=== PATIENT | male | born 1995 | race Caucasian/White ===

== ENCOUNTER 2016-11-23 19:14 | Emergency (ER) | payer OTHER ==
[2016-11-23] MEDS ORDERED: NS 0.9% 1000 ML* 1,000 ML IV ONE (21:42)
[2016-11-23 22:14] LABS: Hematocrit 48 % (42-52); Mean Corpuscular HGB Conc 33 g/dl (31-36); Mean Corpuscular Hemoglobin 29 pg (27-31); Mean Corpuscular Volume 88 fL (80-94); Mean Platelet Volume 7 um3 (7.4-10.4); Red Blood Count 5.49 10^6/ul (4.0-5.4); Red Cell Distribution Width 14 % (10.5-15); White Blood Count 13.1 10^3/ul (3.5-10.8)
[2016-11-23 22:28] LABS: Albumin 4.6 g/dL (3.2-5.2); BUN/Creatinine Ratio 10.7 (8-20); Calcium 9.3 mg/dL (8.6-10.3); EGFR African American 116.1 (>60); EGFR Non-African American 90.3 (>60); Globulin 2.8 g/dL (2-4); Potassium 3.9 mmol/L (3.5-5.0); Total Bilirubin 0.4 mg/dL (0.2-1.0); Total Protein 7.4 g/dL (6.4-8.9)
[2016-11-23 22:42] LABS: Mono Internal Control QC Line Present
[2016-11-23 22:43] LABS: Manual Entry Verification ROB0080
--- NOTE | 2016-11-23 22:45 | RAD ---
INDICATION: Cough, LEFT-sided crackles. Assess for pneumonia. Hematemesis and hemoptysis. History of bronchitis. Asthma. COMPARISON: June 25, 2016 TECHNIQUE: Dual energy PA and routine lateral views of the chest were obtained. REPORT: Clear lungs and pleural spaces. Negative for pneumothorax. The heart, pulmonary vasculature, and mediastinal contours are unremarkable. Unremarkable osseous structures and soft tissue contours. IMPRESSION: No evidence for acute intrathoracic disease.
[2016-11-23 23:46] VITALS: BP 142/97
--- NOTE | 2016-12-02 10:17 | ED ---
GI/ HPI - HPI Summary HPI Summary: Pt here w/ concern about vomiting blood this morning. Drank alot of ETOH last night due to campus celebration of . When he woke this morning, vomited blood into the toilet once. He proceeded to drink ETOH again as the day went on. Denies ab pain and no bloody or dark tarry stool at this time although he reports a remote h/o BRB on toilet paper w/ wiping in the past, painless. His throat is sore today as well. He also notes a cough this morning prior to vomiting. Thinks he may be sick as he's had strep throat before. Denies fever, chills, diarrhea and currently does not have nausea. Has not vomited in many hours and has tolerated food and drink w/o difficulty since vomiting this morning. No known h/o ulcer, varices, liver issues, crohn's/UC or Bethany Licea tears. Smokes cigarettes and marijuana. - History of Current Complaint Chief Complaint: EDGeneral Time Seen by Provider: 11/23/16 21:26 Stated Complaint: UPPER RESPIRATORY COMPLAINT/BLOOD IN VOMIT Hx Obtained From: Patient, Family/[employer] - girlfriend - concerned Pain Intensity: 2 - Allergy/Home Medications Allergies/Adverse Reactions: Allergies Allergy/AdvReac Type Severity Reaction Status Date / Time No Known Allergies Allergy Verified 06/25/16 06:04 PMH/Surg Hx/FS Hx/Imm Hx Previously Healthy: Yes Endocrine/Hematology History: Denies: Hx Anticoagulant Therapy, Hx Blood Disorders, Hx Unexplained Bleeding Cardiovascular History: Denies: Hx Hypertension Respiratory History: Reports: Hx Asthma GI History: Denies: Hx Cirrhosis, Hx Crohn's Disease, Hx Diverticulosis, Hx Gall Bladder Disease, Hx Gastroesophageal Reflux Disease, Hx Gastrointestinal Bleed, Hx Hiatal Hernia, Hx Irritable Bowel, Hx Ulcer Infectious Disease History: No Infectious Disease History: Reports: Traveled Outside the [place] in Last 30 Days - [employer] - Family History Known Family History: Positive: Hypertension - Social History Alcohol Use: Occasionally Substance Use Type: Reports: Marijuana Smoking Status (MU): Current Some Day Smoker Review of Systems Negative: Fever, Chills Positive: Sore Throat. Negative: Dental Pain, Ear Ache, Nasal Discharge Negative: Chest Pain Positive: Cough - see HPI. Negative: Shortness Of Breath Positive: Vomiting - see HPI. Negative: Abdominal Pain, Diarrhea, Nausea Negative: hematuria Negative: Arthralgia, Myalgia Negative: Bruising Neurological: Negative Negative: Headache, Weakness, Paresthesia, Numbness, Syncope Psychological: Normal All Other Systems Reviewed And Are Negative: Yes Physical Exam Triage Information Reviewed: Yes Vital Signs On Initial Exam: Initial Vitals Temp Pulse Resp BP Pulse Ox 98 F 80 18 147/83 100 11/23/16 19:41 11/23/16 19:41 11/23/16 19:41 11/23/16 19:41 11/23/16 19:41 Vital Signs Reviewed: Yes Appearance: Positive: Well-Appearing, No Pain Distress, Well-Nourished Skin: Positive: Warm, Dry - no signs of echymosis, purpura Head/Face: Positive: Normal Head/Face Inspection Eyes: Positive: Normal, EOMI, Conjunctiva Clear - anicteric sclera ENT: Positive: Hearing grossly normal, Pharynx normal - mucosa moist - no sores , lesions or bleeding observed Neck: Positive: Supple, Nontender Respiratory/Lung Sounds: Positive: Clear to Auscultation, Breath Sounds Present. Negative: Rales, Rhonchi, Stridor, Wheezes Cardiovascular: Positive: Normal, RRR, Pulses are Symmetrical in both Upper and Lower Extremities, S1, S2 Abdomen Description: Positive: Nontender, No Organomegaly, Soft, Other: - AURORA (- ) sesar blood; internal hemorrhoid palpated - NTTP Bowel Sounds: Positive: Present Musculoskeletal: Positive: Normal, Strength/ROM Intact Neurological: Positive: Normal, Sensory/Motor Intact, Alert, Oriented to Person Place, Time, CN Intact II-III Psychiatric: Positive: Normal - [place] Coma Scale Coma Scale Total: 15 Diagnostics - Vital Signs Vital Signs Temp Pulse Resp BP Pulse Ox 11/23/16 23:15 98.2 F 11/23/16 23:00 76 142/97 98 11/23/16 22:30 76 138/97 98 11/23/16 22:01 82 141/99 100 11/23/16 21:16 83 99 11/23/16 21:14 152/99 11/23/16 21:09 98.8 F 86 16 152/99 98 11/23/16 19:41 98 F 80 18 147/83 100 - Laboratory Lab Results: Lab Results 0511/23/16 11/23/16 Range/Units 22:05 22:05 22:17 WBC 13.1 H (3.5-10.8) 10^3/ul RBC 5.49 H (4.0-5.4) 10^6/ul Hgb 16.0 (14.0-18.0) g/dl Hct 48 (42-52) % MCV 88 (80-94) fL MCH 29 (27-31) pg MCHC 33 (31-36) g/dl RDW 14 (10.5-15) % Plt Count 190 (150-450) 10^3/ul MPV 7 L (7.4-10.4) um3 Neut % (Auto) 68.8 (38-83) % Lymph % (Auto) 18.6 L (25-47) % [place] % (Auto) 10.3 H (1-9) % Eos % (Auto) 1.9 (0-6) % Baso % (Auto) 0.4 (0-2) % Absolute Neuts (auto) 9.0 H (1.5-7.7) 10^3/ul Absolute Lymphs (auto) 2.4 (1.0-4.8) 10^3/ul Absolute Monos (auto) 1.3 H (0-0.8) 10^3/ul Absolute Eos (auto) 0.2 (0-0.6) 10^3/ul Absolute Basos (auto) 0.1 (0-0.2) 10^3/ul Absolute Nucleated RBC 0.02 10^3/ul Nucleated RBC % 0.2 Sodium 135 (133-145) mmol/L Potassium 3.9 (3.5-5.0) mmol/L Chloride 101 (101-111) mmol/L Carbon Dioxide 26 (22-32) mmol/L Anion Gap 8 (2-11) mmol/L BUN 11 (6-24) mg/dL Creatinine 1.03 (0.67-1.17) mg/dL Est GFR ( Amer) 116.1 (>60) Est GFR (Non-Af Amer) 90.3 (>60) BUN/Creatinine Ratio 10.7 (8-20) Glucose 80 (70-100) mg/dL Calcium 9.3 (8.6-10.3) mg/dL Total Bilirubin 0.40 (0.2-1.0) mg/dL AST 23 (13-39) U/L ALT 34 (7-52) U/L Alkaline Phosphatase 62 (34-104) U/L Total Protein 7.4 (6.4-8.9) g/dL Albumin 4.6 (3.2-5.2) g/dL Globulin 2.8 (2-4) g/dL Albumin/Globulin Ratio 1.6 (1-3) Lipase 18 (11.0-82.0) U/L Monoscreen Negative (Negative) Group A Strep Rapid Negative (Negative) Result Diagrams: 11/23/16 22:05 11/23/16 22:05 Lab Statement: Any lab studies that have been ordered have been reviewed, and results considered in the medical decision making process. GIGU Course/Dx - Course Course Of Treatment: Pt presents w/ 1 x vomiting what appeared to be blood witin emesis into toilet this morning. Has been eating and drinking well since w /o pain. Suspect this was triggered by ETOH consumption. It is unclear if the contents of emesis were actually blood or bile/food. A CXR was ordered to asses for aspiration pneumonia w/ c/o cough which he does not have while here - CXR clear. Labs indicate possible viral infection - electrolytes and H/H WNL. AURORA does not present w/ acute lower GI bleed and hemorrhoid is palpated within rectum. Suspect pt's throat is irritated from drinking ETOH, vomiting, smoking, and possible early onset of viral URI. Strep neg. This ST may be entail irritated mucosa, causing what appears to be blood in sputum and emesis. It was discussed however if he vomits frequently he could have early signs of Bethany Licea tears. Could also have varcies however he does not appear to have ascites today and LFT's are WNL. Encouraged close f/u through PCP as endoscopy and colonoscopy may be warranted to r/o more serious GI condition, especially w/ his lifestyle habits. Encouraged curbing smoking,drinking ETOH at least until assessed by PCP. Reviewed danger s/sx of when to return to ED. [place] diet in meantime. Pt agrees w/ plan. - Diagnoses Provider Diagnoses: Vomiting, URI (upper respiratory infection) Discharge - Discharge Plan Condition: Stable Disposition: HOME Patient Education Materials: Asthma (ED), Rectal Bleeding (ED), Dehydration (ED ), Upper Respiratory Infection (ED) [facility] - Additional Instructions: You are reporting URI sx with asthma exacerbation. You may use your inhaler every 4-6 hours as needed for cough, chest tightness, wheezing. Avoid smoking, candles, air fresheners, etc to prevent further triggering your cough/ bronchospasm. You may try the following for relief: Nasal wash (netti pot) & throat gargle 2 x day with 8 ounces of warm water + 1/ 4 teaspoon of salt Drink 60+ ounces of water daily Sleep 8+ hours per night Avoid Dairy and sugar Hot herbal/decaf tea with lemon & honey Chicken broth (preferably organic, free range chicken) Humidifier in house, but especially near bed at night Try a facial steam with or without eucalyptus essential oil Cough drops Vicks vapor rub Consider taking Vitamin D3 5,000iu and Vitamin C 1,000mg every day during illness *If you develop difficulty breathing or swallowing, return to ED You also reported blood on your toilet paper and vomiting blood 1 x w/o abdominal pain or rectal pain. Your labs and vital signs tonight do not indicate an emergent condition however it is important that you follow-up with your PCP to further address these issues. It is recommended that you drink clear fluids and avoid spicy, greasy foods in the event you have an ulcer. We also discussed the possibility of a GI bleed, esophageal varices, hemorrhoids, GI inflammation and/or cancer. Stop drinking alcohol and any harsh fluids (ie. coffee, etc) to prevent worsening of any irritation of the GI tract. *If you develop return of vomiting, active bleeding from rectal, abdominal pain , fatigue, shortness of breath, return to ED
== END 2016-11-23 23:15 | disposition home or self-care (01) ==
LOC: ED 19:14
DX: J02.9 Acute pharyngitis, unspecified (principal); Z72.0 Tobacco use; R05 Cough; R11.10 Vomiting, unspecified; J06.9 Acute upper respiratory infection, unspecified
CPT/HCPCS: 36415; 71020; 80053; 82270; 83690; 85025; 86308; 87651; 96360; 99283